=== PATIENT | male | born 1960 | race African-American/Black ===

== ENCOUNTER 2017-06-09 08:05 | Inpatient (IN) ==
[2017-06-09] MEDS ORDERED: fentaNYL 100 MCG/2 ML VIAL ONE (08:09)
[2017-06-09] MEDS ORDERED: MIDAZOLAM 2 MG/2 ML VIAL ONE (08:09)
[2017-06-09] MEDS ORDERED: BIVALIRUDIN 250 MG VIAL IV ONE (08:12)
[2017-06-09] MEDS ORDERED: LIDOCAINE 1% 20 ML VIAL ONE (08:46)
[2017-06-09] MEDS ORDERED: HEPARIN/NACL 0.9% 2 UNITS/ML 1,500 ML IV ONE (08:46)
[2017-06-09] MEDS ORDERED: TICAGRELOR 90 MG TABLET ONE (09:01)
[2017-06-09] MEDS ORDERED: ZALEPLON 5 MG CAPSULE PO PRN (09:03)
[2017-06-09] MEDS ORDERED: MORPHINE 2 MG/1 ML SYRINGE IV PRN (09:03)
[2017-06-09] MEDS ORDERED: ACETAMINOPHEN/CODEINE 300-30 MG TABLET PO PRN (09:03)
[2017-06-09] MEDS ORDERED: ACETAMINOPHEN 325 MG TABLET PO PRN (09:03)
[2017-06-09] MEDS ORDERED: ONDANSETRON 4 MG/2 ML VIAL IV PRN (09:03)
--- NOTE | 2017-06-09 09:07 | History and Physical Update ---
Sedation H&P Update - History and Physical H&P was reviewed, the patient examined and there: are no changes in the patients condition since last H&P was completed. - Dictation Physical: refer to H&P completed by admitting physician - Physical Exam Mental Status: alert and oriented Heart: regular rate and rhythm Lung: clear to auscultation Abdomen: within normal limits Vitals: within normal limits History and Physical Changes: This is a late entry. Patient underwent emergent consent in the [facility]. - Sedation Plan for Sedation: moderate Patient Consent: Procedure disscussed with patient and patinet has consented., Risks and benefits were discussed with patient,including infection,, bleeding, injury to surrounding structures, seizure, temporary nerve, Patient understands and accepts potential risks/benefits and agrees to, proceed. ASA Class: IV Airway Assessment: Class I: Soft palate, uvula, fauces, pillars visible
--- NOTE | 2017-06-09 09:11 | Cardiology History & Physical ---
Assessment and Plan (1) ST elevation myocardial infarction (STEMI) of anterior wall Status: Acute Current Visit: Yes (2) Drug use Status: Chronic Current Visit: Yes (3) Alcohol abuse Status: Chronic Current Visit: Yes History of Present Illness Chief complaint: Chest pain History of present illness: The patient was interviewed emergently in the [facility] while preparing for left heart catheterization. 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 Layton is a 57 year old male without a prior cardiac history, he denies any medical history, who presented with chest pain. He presented to [facility]. Early this morning the patient developed chest discomfort which she had a hard time characterizing. It was in extreme discomfort with some associated diaphoresis, shortness of breath. There were no clear triggers or alleviators. He had been given morphine and was not able to characterize his symptoms very well and was a poor historian. According to the hospital record his symptoms had began approximately 1 hour prior to arrival at the outside hospital. He denied any drug or contrast allergy, GI bleeding, or contraindication to dual antiplatelet therapy. He denied any recent illness. Home medications: None Family history: Negative for coronary artery disease Impression and plan: 1. Acute anterior ST elevation myocardial infarction- The patient is now status post emergent PCI to the proximal LAD with placement of synergy 3.5 x 12 mm drug-eluting stent postdilated to 3.75 mm. He also has residual severe diffuse multivessel disease. For now we are going to optimize his medical therapy and evaluate his compliance. He does have a history of ongoing drug use , daily alcohol use. We are going to treat him with beta-sotero therapy, high -dose statin therapy, and dual antiplatelet therapy. We will further risk stratify with echocardiogram and fasting lipid profile. 2. Polysubstance abuse-the merits of alcohol and drug cessation have been addressed. Allergies Allergy/AdvReac Type Severity Reaction Status Date / Time No Known Allergies Allergy Unverified 06/09/17 08:56 12 point system: reviewed and no additional remarkable complaints except as stated Medical,Surgical,& Family Hx - Family History Family History: noncontributory - Social History Smoking Status: Former smoker Frequency of Alcohol Use: Frequently Type of Drug Use: Unknown Functional capacity: independent ambulation Cardiology Physical Exam - Constitutional Vitals: Intake and Output 06/08/17 06/09/17 06/09/17 23:59 07:59 15:59 Other: Weight 63.503 kg Patient Weight 06/09/17 23:59 Weight 63.503 kg Exam: General appearance: normal weight, no acute distress - Head Head exam: Present: normal inspection, normocephalic, atraumatic. Absent: hematoma, laceration - Eye Eye exam: Present: EOMI. Absent: conjunctival injection, nystagmus, periorbital swelling, scleral icterus, laceration to eyelids Pupils: Present: PERRL. Absent: constricted, dilated, fixed, irregular, unequal - ENT ENT exam: Present: normal exam, normal external ear exam - Neck Neck exam: Present: normal inspection. Absent: lymphadenopathy, meningismus, tenderness, thyromegaly - Respiratory Respiratory exam: Present: clear to auscultation bilaterally. Absent: accessory muscle use, chest wall tenderness - Cardiovascular Cardiovascular exam: Present: regular rate and rhythm. Absent: carotid bruit, gallop, JVD, rubs - GI/Abdominal GI/Abdominal exam: Present: normal bowel sounds, soft. Absent: distended, firm , guarding, hernia, mass, tenderness, rebound. - Extremities Exam Extremities exam: Present: normal inspection, normal capillary refill. Absent: calf tenderness, edema - Back Exam Back exam: Present: normal inspection. Absent: muscle spasm, vertebral tenderness - Neurological Exam Neurological exam: Present: alert, oriented X3, grossly intact without resting or intention tremor - Psychiatric Psychiatric exam: Present: normal affect, normal mood - Skin Skin exam: Present: normal color, warm, dry, intact. Absent: cyanosis, diaphoretic, rash, urticaria Result/EKG - Labs Lab Results: I have reviewed the past 24 hour labs - EKG EKG results: interpreted by me, sinus rhythm (Anterior ST elevation)
[2017-06-09] MEDS ORDERED: SODIUM CHLORIDE 0.45% 1,000 ML IV SCH (09:30)
--- NOTE | 2017-06-09 09:33 | Cardiology Operative Report ---
Date of Procedure:: 06/09/17 Pre-op diagnosis: Acute anterior ST elevation [place] Post-op diagnosis: other (100% occluded LAD, moderate to severe multivessel disease.) Procedure: 1. Selective left and right coronary angiography. 2. Left heart catheterization with left ventriculogram. 3. Right iliac angiography to rule out vascular complications. 4. Percutaneous intervention of the proximal LAD with placement of synergy 3.5 x 12 mm drug-eluting stent postdilated to 3.75 mm. 5. Application of mynx hemostasis device to the right femoral arteriotomy site. Impression: 1. Multivessel coronary artery disease. A. Proximal LAD with 100% stenosis. The midportion has diffuse 50% stenosis. B. Proximal intermediate ramus with 80% stenosis. C. Circumflex with 50-60% stenosis. D. Mid right coronary artery with 40-50% stenosis. 2. [Right] dominant coronary arteries. 3. Ejection fraction 50 %. 4. [Angiographically normal] right iliac artery [without] evidence of vascular complications. 5. Successful PCI of the proximal left anterior descending coronary artery as described above. Plan: 1. DAPT > 12 months. 2. [Risk factor modification]. Equipment: [Diagnostic 6 [place] JR4, pigtail catheters] Guiding 6 [place] EBU 3.5 catheter, [300 cm Practice Management e-Tools wire], apex over the wire 2 x 12 mm balloon, synergy 3.5 x 12 mm drug-eluting stent, Quantum [place] 3.75 x 8 mm non-compliant balloon Mynx Hemodynamics: Aortic pressure 121/90 mmHg, left ventricular pressure 153/11 mmHg, LVEDP 11 mmHg Sedation: Versed 1 mg, fentanyl 25 mcg Procedure: After informed consent was obtained the patient was prepped and draped in sterile fashion. The [right] groin was infiltrated with 1% lidocaine and the [ right] femoral artery was accessed via modified Seldinger technique using a micropuncture needle and a 6 [place] femoral arterial sheath was placed. All catheter exchanges were performed over a guidewire under fluoroscopic guidance. Diagnostic 6 [place] JR4 catheter was advanced to the right coronary artery and multiple cineangiograms were performed in varying degrees of obliquity and angulation. A guiding 6 [place] EBU 3.5 catheter was then advanced to the left main coronary artery, and multiple scintigrams were performed in varying degrees of obliquity angulation. Percutaneous intevention of the LAD was then performed as described below. Right iliac angiography was performed to rule out vascular complications. Thereafter a pigtail catheter was advanced into the left ventricle where hemodynamics were obtained followed by left ventriculogram. A mynx hemostasis device was unsuccessfully applied to the right femoral arteriotomy site. Findings: 1. The left main artery [is angiographically normal]. 2. The left anterior descending artery is 100% occluded in the proximal segment. After he was revascularized, the midportion was observed to have 50% diffuse stenosis. 3. There [is] an intermediate ramus branch that is moderate caliber with 80% stenosis in the proximal segment. 4. The circumflex artery is a nondominant vessel. There is diffuse disease with serial areas of 60% and 50% stenosis in the mid segments. 5. The right coronary artery is a dominant vessel. It is diffusely mildly ectatic with mild to moderate atheromatous disease, and 40-50% stenosis in the mid segment. 6. Ejection fraction is 50 % with apical akinesis. 7. [No significant] mitral regurgitation. 8. [No significant] aortic stenosis. 9. The right iliac artery [is angiographically normal] without evidence of vascular complications. PCI: The patient was anticoagulated with [Angiomax] and Integrilin. After appropriate anticoagulation was confirmed with an ACT measurement, a guiding 6 [place] EBU 3.5 catheter was advanced to the [left main] artery. A [Prowater 300 cm] wire was used to traverse the [left anterior descending] artery. A apex over the wire 2 x 12 mm balloon was advanced to the site of stenosis and angioplasty was performed at nominal ginger. Thereafter, a synergy 3.5 x 12 mm drug-eluting stent was advanced to the site of angioplasty, and successfully deployed at nominal ginger. Afterwards, a non-compliant Quantum [place] 3.75 x 8 mm balloon was advanced into the stented segment and post-dilation was performed at nominal pressure. Satisfactory angiographic result was obtained with appropriate step-up proximally and distally, and no evidence of residual vascular complications. Preoperatively there was 100% stenosis with LESA 0 flow , postoperatively there is 0% residual stenosis with LESA-3 flow. Contrast use: Visipaque 203 cc Fluoro time: 9.7 minutes Complications: [none] Specimens removed: [none] Devices implanted: [stent and [id number] as described above] Anesthesia: moderate conscious sedation Surgeon / Physician: Alisson Garcia Correction Worker: none (Shayne Michael) Estimated blood loss: minimal Specimens: none sent Condition: stable Disposition: ICU/CCU
[2017-06-09 09:53] LABS: Basophils % 0.6 % (0.0-0.8); Eosinophils % 0.3 % (0.00-10.9); Hematocrit 35.8 VOL% (42.0-52.0); Hemoglobin 11.8 GM/DL (14.0-18.0); Immature Granulocytes % 0.3 %; Immature Granulocytes Absolute 0.01 #; Lymphocytes # 0.8 10*3/uL (1.4-4.0); Mean Corpuscular Hemoglobin 30 PG (27-34); Mean Corpuscular Volume 92.3 FL (87-102); Mean Platelet Volume 9.2 FL (9.6-12.0); Monocytes # 0.2 10*3/uL (0.11-0.8); Monocytes % 7.1 % (1.7-12.7); Neutrophils # 2.3 10*3/uL (1.4-7.4); Neutrophils % 67.7 % (38.7-73.9); Platelet Count 175 T/CUMM (130-400); Red Blood Count 3.88 MC/CUMM (3.8-5.5); Red Cell Distribution Width 13.5 % (9.3-17.3); White Blood Count 3.4 T/CUMM (4-12)
[2017-06-09 10:25] LABS: Calcium 7.9 MG/DL (8.5-10.1); Osmolality,Calculated 275.5 MOS/KG (273-304); Potassium 3.6 MMOL/L (3.5-5.1)
[2017-06-09 10:43] LABS: CKMB % 8.1 %
--- NOTE | 2017-06-09 10:48 | EKG Report ---
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
[2017-06-09] MEDS: NITROGLYCERIN SL 0.4 MG TABLET SL PRN ×4 (13:53→20:53)
[2017-06-09 14:04] LABS: Barbiturates Screen,Urine Negative (Negative); Benzodiazepines Screen,Urine Positive (Negative); Cannabinoid Screen,Urine Negative (Negative); Opiate Screen,Urine Positive (Negative); Phencyclidine Screen,Urine Negative (Negative)
[2017-06-09] MEDS ORDERED: METOPROLOL TARTRATE 5 MG/5 ML VIAL IV ONE (16:00)
[2017-06-09 18:29] LABS: CKMB % 9.1 %
[2017-06-09 18:38] LABS: Troponin I Only > 200.000 NG/ML (0.00-0.045)
[2017-06-09] MEDS: TICAGRELOR 90 MG TABLET PO SCH (20:47)
[2017-06-09] MEDS: ATORVASTATIN 40 MG TABLET PO SCH (20:47)
[2017-06-09] MEDS: CARVEDILOL 6.25 MG TABLET PO SCH (20:47)
[2017-06-10 01:48] LABS: Basophils % 0.3 % (0.0-0.8); Hematocrit 38.2 VOL% (42.0-52.0); Hemoglobin 13.2 GM/DL (14.0-18.0); Immature Granulocytes % 0.3 %; Immature Granulocytes Absolute 0.02 #; Lymphocytes # 1.1 10*3/uL (1.4-4.0); Mean Corpuscular HGB Conc 34.6 GM/DL (32-36); Mean Corpuscular Hemoglobin 30 PG (27-34); Mean Corpuscular Volume 87.8 FL (87-102); Monocytes # 0.8 10*3/uL (0.11-0.8); Monocytes % 10.1 % (1.7-12.7); Neutrophils # 5.7 10*3/uL (1.4-7.4); Neutrophils % 75.3 % (38.7-73.9); Platelet Count 181 T/CUMM (130-400); Red Blood Count 4.35 MC/CUMM (3.8-5.5); Red Cell Distribution Width 13.1 % (9.3-17.3); White Blood Count 7.6 T/CUMM (4-12)
[2017-06-10 02:44] LABS: Calcium 8.4 MG/DL (8.5-10.1); Osmolality,Calculated 264.5 MOS/KG (273-304); Risk Ratio 4.1; VLDL CHOLESTEROL 40.2 MG/DL
[2017-06-10 02:48] LABS: CKMB % 7.2 %; Troponin I Only 89.9 NG/ML (0.00-0.045)
[2017-06-10 03:03] LABS: Alanine Aminotransferase 78 U/L (16-61); Albumin 3.4 G/DL (3.4-5.0); Alkaline Phosphatase 93 U/L (45-117); Aspartate Amino Transferase 552 U/L (0-37); Bilirubin,Direct < 0.100 MG/DL (0.0-0.20); Bilirubin,Indirect 0.6 MG/DL (0.0-1.0); Total Protein 7.3 G/DL (6.4-8.3)
[2017-06-10] MEDS: ENOXAPARIN 40 MG/0.4 ML SYRINGE SUBCUT SCH (06:07)
--- NOTE | 2017-06-10 08:46 | EKG Report ---
Please refer to the EKG image. Final interpretation is pending.
--- NOTE | 2017-06-10 08:49 | ECHO Report ---
Shayne Layton Exam Date: 06/09/2017 11:51 Referring Physician: Technologist: Kalpana Guerrero RDCS Age: 57 Ht (in): 65 Wt (lb): 140 Gender: M Exam Location: [facility] Echo Indications: Chest pain, unspecified, Acute anterior STEMI, Polysubstance abuse, Shortness of breath, s/p CATH with stent BP: 148 / 101 HR: 81 Rhythm: Sinus Technical Quality: Poor IMPRESSIONS Mildly reduced LV systolic function with regional wall motion as described below, ejection fraction estimated at 40%. Grade 1/4 diastolic dysfunction. Mild tricuspid regurgitation. MEASUREMENTS (Male / Female) Normal Values 2D ECHO LV Diastolic Diameter PLAX 4.2 cm 4.2 - 5.9 / 3.9 - 5.3 cm LV Systolic Diameter PLAX 2.5 cm LV Fractional Shortening PLAX 39.4 % IVS Diastolic Thickness 1.1 cm 0.6 - 1.0 / 0.6 - 0.9 cm LVPW Diastolic Thickness 1.1 cm 0.6 - 1.0 / 0.6 - 0.9 cm RV Internal Dim ED PLAX 2.8 cm Aortic Root Diameter 3.0 cm LA Systolic Diameter LX 2.6 cm 3.0 - 4.0 / 2.7 - 3.8 cm DOPPLER TR Peak Velocity 319.0 cm/s TR Peak Gradient 40.7 mmHg FINDINGS Left Ventricle Normal left ventricular cavity size. Mild left ventricular hypertrophy. Left ventricular ejection fraction is estimated at 40-45 %. The anterior septum and apex appear akinetic. The anterior wall is not well seen on this study. There is diastolic dysfunction consistent with impaired relaxation. Right Ventricle The right ventricle is normal in size and function. Right Atrium The right atrium is normal in size. Left Atrium The left atrium is normal in size. Mitral Valve Morphologically normal mitral valve without significant stenosis or prolapse. There is no mitral regurgitation. Aortic Valve Morphologically normal aortic valve without significant sclerosis or stenosis. There is no aortic regurgitation. Tricuspid Valve Morphologically normal tricuspid valve. Mild tricuspid valve regurgitation. Tricuspid regurgitation velocities suggest a PAP of 51 mmHg. Pulmonic Valve Morphologically normal pulmonic valve without significant stenosis. There is no pulmonic regurgitation. Pericardium Normal pericardium without effusion. Aorta Normal ascending aorta dimension. Alisson Garcia MD (Electronically Signed) Final Date: 10 June 2017 08:47
[2017-06-10] MEDS: PANTOPRAZOLE 40 MG TABLET PO SCH (09:54)
[2017-06-10] MEDS: ASPIRIN EC 81 MG TABLET PO SCH (09:54)
[2017-06-10] MEDS: CARVEDILOL 6.25 MG TABLET PO SCH ×2 (09:54→21:06)
[2017-06-10] MEDS: LISINOPRIL 5 MG TABLET PO SCH (09:54)
[2017-06-10] MEDS: TICAGRELOR 90 MG TABLET PO SCH ×2 (09:54→21:06)
[2017-06-10] MEDS: ISOSORBIDE MONONITRATE 30 MG TABLET PO SCH (09:54)
--- NOTE | 2017-06-10 15:05 | Cardiology Progress Note ---
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 Layton is a 57 year old male without a prior cardiac history, he denies any medical history, who was admitted to the hospital from [facility] with acute anterior ST elevation myocardial infarction. He underwent emergent PCI to the proximal LAD with synergy 3.5 x 12 mm drug-eluting stent postdilated to 3.75 mm. He also has at least moderate disease throughout the remainder of his vessels, and severe intermedius ramus disease. He has a history of polysubstance abuse and was cocaine positive upon admission. June 10, 2017: He did well overnight he denies any chest pain. He has had some nonsustained ventricular tachycardia. He denies any shortness of breath or complaints from his cath site. Impression and plan: 1. Acute anterior ST elevation myocardial infarction- The patient is now status post emergent PCI to the proximal LAD with placement of synergy 3.5 x 12 mm drug-eluting stent postdilated to 3.75 mm. He also has residual severe diffuse multivessel disease. For now we are going to optimize his medical therapy and evaluate his compliance. He does have a history of ongoing drug use , daily alcohol use. We are going to treat him with beta-sotero therapy, high -dose statin therapy, and dual antiplatelet therapy. I prefer not to have him on a beta-sotero because of his ongoing cocaine use. However, he has had some nonsustained ventricular tachycardia so we will treat him with Coreg. 2. Polysubstance abuse-the merits of alcohol and drug cessation have been addressed. I reiterated the paramount importance of cocaine cessation today and its direct relationship with his coronary artery disease and the myocardial infarction he has sustained. Exam (Progress Note) - Constitutional Vitals: Period Temp Pulse Resp BP Sys/Lau Pulse Ox Last 24 Hr 95.8 F-98.2 F 81-102 8-22 119-171/77-108 94-99 Exam: General appearance: normal weight, no acute distress - Head Head exam: Present: normal inspection, normocephalic, atraumatic. Absent: hematoma, laceration - Eye Eye exam: Present: EOMI. Absent: conjunctival injection, nystagmus, periorbital swelling, scleral icterus, laceration to eyelids Pupils: Present: PERRL. Absent: constricted, dilated, fixed, irregular, unequal - ENT ENT exam: Present: normal exam, normal external ear exam - Neck Neck exam: Present: normal inspection. Absent: lymphadenopathy, meningismus, tenderness, thyromegaly - Respiratory Respiratory exam: Present: clear to auscultation bilaterally. Absent: accessory muscle use, chest wall tenderness - Cardiovascular Cardiovascular exam: Present: regular rate and rhythm. Absent: carotid bruit, gallop, JVD, rubs - GI/Abdominal GI/Abdominal exam: Present: normal bowel sounds, soft. Absent: distended, firm , guarding, hernia, mass, tenderness, rebound. - Extremities Exam Extremities exam: Present: normal inspection, normal capillary refill. Absent: calf tenderness, edema - Back Exam Back exam: Present: normal inspection. Absent: muscle spasm, vertebral tenderness - Neurological Exam Neurological exam: Present: alert, oriented X3, grossly intact without resting or intention tremor - Psychiatric Psychiatric exam: Present: normal affect, normal mood - Skin Skin exam: Present: normal color, warm, dry, intact. Absent: cyanosis, diaphoretic, rash, urticaria Right groin is without hematoma or bruit, right femoral pulses 3+, right posterior tibialis pulses 2+. Result/EKG - Labs CBC & BMP: 06/10/17 01:12 06/10/17 01:12 Lab Results: I have reviewed the past 24 hour labs Labs: Laboratory Results - last 24 hr 06/09/17 06/09/17 06/10/17 17:48 17:48 01:12 WBC RBC Hgb Hct MCV MCH MCHC RDW Plt Count MPV Neut % (Auto) Lymph % (Auto) Ritchie % (Auto) Eos % (Auto) Baso % (Auto) Neut # (Auto) Lymph # (Auto) Ritchie # (Auto) Eos # (Auto) Baso # (Auto) Immature Gran % Nucleated RBC % Immature Gran # Nucleated RBCs # Sodium Potassium Chloride Carbon Dioxide Anion Gap BUN Creatinine GFR Calculation BUN/Creatinine Ratio Glucose Calculated Osmolality Calcium Magnesium 1.8 Total Bilirubin Direct Bilirubin Indirect Bilirubin AST ALT Alkaline Phosphatase Total Creatine Kinase 4078 H 2676 H D CK-MB (CK-2) 371.4 H D 192.2 H D CK and CKMB Interp 9.1 7.2 Troponin I > 200.000 H D 89.900 H D Total Protein Albumin Triglycerides Cholesterol LDL Cholesterol VLDL Cholesterol HDL Cholesterol Heart Disease Risk Ratio 06/10/17 06/10/17 06/10/17 01:12 01:12 01:12 WBC 7.6 D RBC 4.35 Hgb 13.2 L Hct 38.2 L MCV 87.8 MCH 30 MCHC 34.6 RDW 13.1 Plt Count 181 MPV 10.0 Neut % (Auto) 75.3 H Lymph % (Auto) 14.0 L Ritchie % (Auto) 10.1 Eos % (Auto) 0.0 Baso % (Auto) 0.3 Neut # (Auto) 5.7 Lymph # (Auto) 1.1 L Ritchie # (Auto) 0.8 Eos # (Auto) 0.0 Baso # (Auto) 0.0 Immature Gran % 0.3 Nucleated RBC % 0.0 Immature Gran # 0.02 Nucleated RBCs # 0.00 Sodium 132 L Potassium 4.0 Chloride 98 Carbon Dioxide 22 Anion Gap 16.0 H BUN 7 Creatinine 0.90 GFR Calculation 112 BUN/Creatinine Ratio 7.00 Glucose 149 H Calculated Osmolality 264.5 L Calcium 8.4 L Magnesium Total Bilirubin 0.70 Direct Bilirubin < 0.100 Indirect Bilirubin 0.6 AST 552 H ALT 78 H Alkaline Phosphatase 93 Total Creatine Kinase CK-MB (CK-2) CK and CKMB Interp Troponin I Total Protein 7.3 Albumin 3.4 Triglycerides 201 H Cholesterol 287 H LDL Cholesterol 178.0 VLDL Cholesterol 40.2 HDL Cholesterol 70 H Heart Disease Risk Ratio 4.10
[2017-06-10] MEDS: ATORVASTATIN 40 MG TABLET PO SCH (21:06)
[2017-06-11] MEDS: ENOXAPARIN 40 MG/0.4 ML SYRINGE SUBCUT SCH (05:55)
[2017-06-11] MEDS: CARVEDILOL 6.25 MG TABLET PO SCH ×2 (09:31→21:31)
[2017-06-11] MEDS: ASPIRIN EC 81 MG TABLET PO SCH (09:31)
[2017-06-11] MEDS: ISOSORBIDE MONONITRATE 30 MG TABLET PO SCH (09:31)
[2017-06-11] MEDS: LISINOPRIL 5 MG TABLET PO SCH (09:31)
[2017-06-11] MEDS: TICAGRELOR 90 MG TABLET PO SCH ×2 (09:31→21:31)
[2017-06-11] MEDS: PANTOPRAZOLE 40 MG TABLET PO SCH (09:31)
--- NOTE | 2017-06-11 11:20 | Cardiology Progress Note ---
Assessment and Plan - Time spent with patient Time spent with patient: Greater than 30 minutes Time spent discussing smoking cessation with patient: 3 to 10 minutes (1) Hypertension Status: Chronic Assessment and plan: SEE PLAN OF CARE LISTED BELOW Current Visit: Yes (2) Dyslipidemia Status: Chronic Assessment and plan: SEE PLAN OF CARE LISTED BELOW Current Visit: Yes (3) Cocaine abuse Status: Chronic Assessment and plan: SEE PLAN OF CARE LISTED BELOW Current Visit: Yes (4) Marijuana abuse Status: Chronic Assessment and plan: SEE PLAN OF CARE LISTED BELOW Current Visit: Yes (5) Tobacco abuse Status: Chronic Assessment and plan: SEE PLAN OF CARE LISTED BELOW Current Visit: Yes (6) ST elevation myocardial infarction (STEMI) of anterior wall Status: Acute Assessment and plan: SEE PLAN OF CARE LISTED BELOW Current Visit: Yes (7) Alcohol abuse Status: Chronic Assessment and plan: SEE PLAN OF CARE LISTED BELOW Current Visit: Yes Cardiology - PN: Subj Interval history: PROGRAM OFFICER: DR. GARCIA SUMMARY: Mr. Layton, 57BM, admitted June 09, 2017 with anterior STEMI. He was taken emergently to the cardiac catheterization lab where Dr. Alisson Garcia performed heart catheterization with the following noted: Findings: 1. The left main artery [is angiographically normal]. 2. The left anterior descending artery is 100% occluded in the proximal segment. After he was revascularized, the midportion was observed to have 50% diffuse stenosis. 3. There [is] an intermediate ramus branch that is moderate caliber with 80% stenosis in the proximal segment. 4. The circumflex artery is a nondominant vessel. There is diffuse disease with serial areas of 60% and 50% stenosis in the mid segments. 5. The right coronary artery is a dominant vessel. It is diffusely mildly ectatic with mild to moderate atheromatous disease, and 40-50% stenosis in the mid segment. 6. Ejection fraction is 50 % with apical akinesis. 7. [No significant] mitral regurgitation. 8. [No significant] aortic stenosis. 9. The right iliac artery [is angiographically normal] without evidence of vascular complications. PCI: The patient was anticoagulated with [Angiomax] and Integrilin. After appropriate anticoagulation was confirmed with an ACT measurement, a guiding 6 [place] EBU 3.5 catheter was advanced to the [left main] artery. A [BTI Systemswater 300 cm] wire was used to traverse the [left anterior descending] artery. A apex over the wire 2 x 12 mm balloon was advanced to the site of stenosis and angioplasty was performed at nominal ginger. Thereafter, a synergy 3.5 x 12 mm drug-eluting stent was advanced to the site of angioplasty, and successfully deployed at nominal ginger. Afterwards, a non-compliant Quantum Waldo 3.75 x 8 mm balloon was advanced into the stented segment and post-dilation was performed at nominal pressure. Satisfactory angiographic result was obtained with appropriate step-up proximally and distally, and no evidence of residual vascular complications. Preoperatively there was 100% stenosis with LESA 0 flow , postoperatively there is 0% residual stenosis with LESA-3 flow. Tolerated the procedure well without complication and has been housed in our CCU. JUNE 11, 2017: This morning, patient is doing well. Denies chest pain, heaviness, tightness. He has only minimally ambulated to the bedside commode and back. Troponins are trending down. We will transition to telemetry overnight with possible discharge tomorrow. Medical management will ensue for the other areas mentioned above. He has been placed on isosorbide mononitrate. He is taking appropriate medications including: Aspirin, Brilinta, beta- sotero, HOLGER inhibitor, lipid-lowering agent. Cardiac rehab has seen patient and counseled. Right groin is soft, free of hematoma or bruit. I will further discuss with Dr. Augustin and await additional recommendations. ASSESSMENT/PLAN: 1. STEMI -anterior. On appropriate medicines. At this time, troponin is trending down and suspect he may be eligible for discharge tomorrow. 2. HYPERTENSION - adequately controlled. 3. DYSLIPIDEMIA - LDL 178. Continue lipid-lowering agent 4. TOBACCO USE - greater than 5 minutes was spent today discussing the merits of tobacco cessation 5. COCAINE USE - greater than 5 minutes was spent today discussing the merits of cocaine cessation 6. MARIJUANA USE - greater than 5 minutes was spent today discussing the merits of marijuana cessation 7. ALCOHOL USE - greater than 5 minutes was spent today discussing the merits of excessive alcohol cessation Exam (Progress Note) - Constitutional Vitals: Period Temp Pulse Resp BP Sys/Lau Pulse Ox Last 24 Hr 97.4 F-98.9 F 84-103 16-24 67-128/43-83 95-99 Exam: General: [Appears well with no apparent distress.] [Pleasant and cooperative. ] [Appears comfortable.] HEENT: [PERRL, normocephalic, atraumatic. Mucous membranes moist. No jaundice noted. Conjunctiva moist and clear, sclerae anicteric] Neck: No JVD/HJR, no thyromegaly or lymphadenopathy noted. No carotid bruit appreciated Cardiac: [Regular rate and rhythm.] [No murmur rub or gallop.] Lungs: [Clear to auscultation without accessory muscle use to assist the respiratory pattern.] Oxygen in use via nasal cannula Abdomen: Soft, bowel sounds normoactive. Nontender and nondistended. No abdominal bruit or thrill noted. No masses noted. Musculoskeletal: No fluid collection. Decreased range of motion is noted. Extremities: Right groin soft, free of hematoma or bruit. No clubbing, cyanosis noted. [ No edema noted.] Upper extremity pulses 2+. Lower extremity pulses 2+. Capillary refill less than 3 seconds. Skin: No unusual lesions or rashes. No skin breakdown appreciated. Neuro: Awake, alert and oriented 3. Moves all extremities well without hemiparesis or paralysis. No essential tremor is appreciated. Result/EKG - Labs CBC & BMP: 06/10/17 01:12 06/10/17 01:12 Lab Results: I have reviewed the past 24 hour labs - Diagnostic Findings Procedure: Chest x-ray: report reviewed by me - EKG EKG results: interpreted by me EKG shows: sinus rhythm Specialty Discharge - Follow Up or Referrals
[2017-06-11] MEDS: ATORVASTATIN 40 MG TABLET PO SCH (21:31)
[2017-06-12] MEDS: ENOXAPARIN 40 MG/0.4 ML SYRINGE SUBCUT SCH (03:52)
[2017-06-12 05:33] LABS: Basophils % 0.4 % (0.0-0.8); Eosinophils # 0.1 10*3/uL (0.0-0.87); Hematocrit 34.8 VOL% (42.0-52.0); Hemoglobin 11.6 GM/DL (14.0-18.0); Immature Granulocytes % 0.6 %; Immature Granulocytes Absolute 0.04 #; Lymphocytes # 2.2 10*3/uL (1.4-4.0); Lymphocytes % 32.9 % (21.2-54.2); Mean Corpuscular HGB Conc 33.3 GM/DL (32-36); Mean Corpuscular Hemoglobin 30 PG (27-34); Mean Corpuscular Volume 90.2 FL (87-102); Mean Platelet Volume 10.1 FL (9.6-12.0); Monocytes # 1.2 10*3/uL (0.11-0.8); Monocytes % 17.4 % (1.7-12.7); Neutrophils # 3.2 10*3/uL (1.4-7.4); Neutrophils % 47.7 % (38.7-73.9); Platelet Count 181 T/CUMM (130-400); Red Blood Count 3.86 MC/CUMM (3.8-5.5); Red Cell Distribution Width 12.5 % (9.3-17.3); White Blood Count 6.7 T/CUMM (4-12)
[2017-06-12 05:53] LABS: Band Neutrophils 1 % (0-10); Eosinophils 1 % (0-10); Giant Platelets Few; Hypochromasia 1+; Lymphocytes 45 % (20-55); Platelet Estimate Normal; Segmented Neutrophils 47 % (50-85); Total Cells Counted 100
[2017-06-12 06:09] LABS: Calcium 8.8 MG/DL (8.5-10.1); Osmolality,Calculated 277.5 MOS/KG (273-304); Potassium 4.2 MMOL/L (3.5-5.1)
[2017-06-12 08:05] VITALS: BP 118/68
[2017-06-12] MEDS: CARVEDILOL 6.25 MG TABLET PO SCH (09:43)
[2017-06-12] MEDS: PANTOPRAZOLE 40 MG TABLET PO SCH (09:43)
[2017-06-12] MEDS: TICAGRELOR 90 MG TABLET PO SCH (09:43)
[2017-06-12] MEDS: LISINOPRIL 5 MG TABLET PO SCH (09:43)
[2017-06-12] MEDS: ASPIRIN EC 81 MG TABLET PO SCH (09:43)
[2017-06-12] MEDS: ISOSORBIDE MONONITRATE 30 MG TABLET PO SCH (09:43)
--- NOTE | 2017-06-12 09:45 | Discharge Summary ---
Hospital Course - Hospital Course Hospital Course: CATTYMAN: DR. GARCIA SUMMARY: Mr. Layton, 57BM, admitted June 09, 2017 with anterior STEMI. He was taken emergently to the cardiac catheterization lab where Dr. Alisson Garcia performed heart catheterization with the following noted: Findings: 1. The left main artery [is angiographically normal]. 2. The left anterior descending artery is 100% occluded in the proximal segment. After he was revascularized, the midportion was observed to have 50% diffuse stenosis. 3. There [is] an intermediate ramus branch that is moderate caliber with 80% stenosis in the proximal segment. 4. The circumflex artery is a nondominant vessel. There is diffuse disease with serial areas of 60% and 50% stenosis in the mid segments. 5. The right coronary artery is a dominant vessel. It is diffusely mildly ectatic with mild to moderate atheromatous disease, and 40-50% stenosis in the mid segment. 6. Ejection fraction is 50 % with apical akinesis. 7. [No significant] mitral regurgitation. 8. [No significant] aortic stenosis. 9. The right iliac artery [is angiographically normal] without evidence of vascular complications. PCI: The patient was anticoagulated with [Angiomax] and Integrilin. After appropriate anticoagulation was confirmed with an ACT measurement, a guiding 6 [place] EBU 3.5 catheter was advanced to the [left main] artery. A [Prowater 300 cm] wire was used to traverse the [left anterior descending] artery. A apex over the wire 2 x 12 mm balloon was advanced to the site of stenosis and angioplasty was performed at nominal ginger. Thereafter, a synergy 3.5 x 12 mm drug-eluting stent was advanced to the site of angioplasty, and successfully deployed at nominal ginger. Afterwards, a non-compliant Quantum [place]alou 3.75 x 8 mm balloon was advanced into the stented segment and post-dilation was performed at nominal pressure. Satisfactory angiographic result was obtained with appropriate step-up proximally and distally, and no evidence of residual vascular complications. Preoperatively there was 100% stenosis with LESA 0 flow , postoperatively there is 0% residual stenosis with LESA-3 flow. Tolerated the procedure well without complication and has been housed in our CCU. JUNE 11, 2017: This morning, patient is doing well. Denies chest pain, heaviness, tightness. He has only minimally ambulated to the bedside commode and back. Troponins are trending down. We will transition to telemetry overnight with possible discharge tomorrow. Medical management will ensue for the other areas mentioned above. He has been placed on isosorbide mononitrate. He is taking appropriate medications including: Aspirin, Brilinta, beta- sotero, HOLGER inhibitor, lipid-lowering agent. Cardiac rehab has seen patient and counseled. Right groin is soft, free of hematoma or bruit. I will further discuss with Dr. Augustin and await additional recommendations. JUNE 12, 2017: Patient was transitioned to telemetry overnight. He has been ambulating in the hallways without complaints of chest pain, heaviness or tightness. Denies shortness of breath. He is anxious for release home. Long discussion ensued today regarding the need for abstaining from illicit drugs, alcohol and tobacco. He verbalizes understanding. His right groin is soft, free of hematoma or bruit. Labs are stable. I have instructed him regarding the importance of continued follow-up in taking of his medications as directed without fail for 1 year. He verbalizes understanding of this information. Having felt is met maximal medical therapy, patient is being discharged home in stable condition. He will be given a 1-2 week follow-up with Dr. Alisson Garcia. At that visit the following will be obtained, BMP, magnesium, CBC and EKG. Discharge medications include the following: Aspirin 81 mg orally daily Brilinta 90 mg orally twice daily without fail Coreg 6.25 mg orally twice daily Lisinopril 5 mill grams orally daily Atorvastatin 80 mg orally each evening Isosorbide mononitrate 30 mg orally daily Nitroglycerin 0.4 mg sublingual as needed for chest - Time spent with patient Time with patient DS: Greater than 30 minutes Time spent discussing smoking cessation with patient: 3 to 10 minutes Diagnosis - Discharge Diagnosis (1) Hypertension Status: Chronic (2) Dyslipidemia Status: Chronic (3) Cocaine abuse Status: Chronic (4) Marijuana abuse Status: Chronic (5) Tobacco abuse Status: Chronic (6) ST elevation myocardial infarction (STEMI) of anterior wall Status: Acute (7) Alcohol abuse Status: Chronic Specialty Discharge - Follow Up or Referrals Follow up with: Alisson Garcia MD [Physician] - (1-2 weeks. BMP, magnesium, CBC and EKG) Discharge Plan - Discharge Data Disposition: Disch To Home/Self Care Condition at Discharge: Stable Discharge Diet: heart healthy Activity: other (Post cath expectations) Hygiene: other (Post cath expectations) Weight Bearing at Discharge: other (Post cath expectations) Driving: other (Post cath expectations) Contact your physician if you experience:: fever over 101, Difficulty voiding, Redness or swelling, Nausea/Vomiting, Shortness of breath, Bleeding, pain uncontrolled by pain medications - Discharge Medications New Aspirin EC Tab 81 mg PO DAILY #30 tablet Atorvastatin [Lipitor] 80 mg PO BEDTIME #30 tablet Isosorbide Mononitrate [Imdur] 30 mg PO DAILY #30 tablet Lisinopril [Prinivil] 5 mg PO DAILY #30 tablet Nitroglycerin Sl Tab [Nitrostat] 0.4 mg SL Q5M PRN #1 bottle PRN Reason: Chest Pain Ticagrelor [Brilinta] 90 mg PO BID #60 tablet Carvedilol [Coreg] 6.25 mg PO BID #60 tablet - Follow Up or Referral - Forms/Instructions Instructions: Myocardial Infarction (GEN), Left Heart Catheterization (DC), Heart Healthy Diet (GEN), Cigarette Smoking and Your Health (GEN), Coronary Intravascular Stent Placement, Hob Machine Operator (GEN) Exam - Constitutional Vitals: Period Temp Pulse Resp BP Sys/Lau Pulse Ox Last 24 Hr 97.3 F-98.9 F 83-95 17-20 90-118/50-68 96-99 Exam: General: [Appears well with no apparent distress.] [Pleasant and cooperative. ] [Appears comfortable.] HEENT: [PERRL, normocephalic, atraumatic. Mucous membranes moist. No jaundice noted. Conjunctiva moist and clear, sclerae anicteric] Neck: No JVD/HJR, no thyromegaly or lymphadenopathy noted. No carotid bruit appreciated Cardiac: [Regular rate and rhythm.] [No murmur rub or gallop.] Lungs: [Clear to auscultation without accessory muscle use to assist the respiratory pattern.] Oxygen in use via nasal cannula Abdomen: Soft, bowel sounds normoactive. Nontender and nondistended. No abdominal bruit or thrill noted. No masses noted. Musculoskeletal: No fluid collection. Decreased range of motion is noted. Extremities: Right groin soft, free of hematoma or bruit. No clubbing, cyanosis noted. [ No edema noted.] Upper extremity pulses 2+. Lower extremity pulses 2+. Capillary refill less than 3 seconds. Skin: No unusual lesions or rashes. No skin breakdown appreciated. Neuro: Awake, alert and oriented 3. Moves all extremities well without hemiparesis or paralysis. No essential tremor is appreciated. Discharge Results Labs on day of discharge: Labs from last 24 hours 06/12/17 06/12/17 05:14 05:14 WBC 6.7 RBC 3.86 Hgb 11.6 L Hct 34.8 L MCV 90.2 MCH 30 MCHC 33.3 RDW 12.5 Plt Count 181 MPV 10.1 Neut % (Auto) 47.7 Lymph % (Auto) 32.9 [place] % (Auto) 17.4 H Eos % (Auto) 1.0 Baso % (Auto) 0.4 Neut # (Auto) 3.2 Lymph # (Auto) 2.2 [place] # (Auto) 1.2 H Eos # (Auto) 0.1 Baso # (Auto) 0.0 Total Counted 100 Immature Gran % 0.6 Nucleated RBC % 0.0 Immature Gran # 0.04 Segmented Neutrophils 47 L Band Neutrophils 1 Lymphocytes 45 Monocytes 6 Eosinophils 1 Nucleated RBCs # 0.00 Platelet Estimate Normal Giant Platelets Few Immature Plt Fraction 0.0 Hypochromasia 1+ Sodium 139 Potassium 4.2 Chloride 103 Carbon Dioxide 31 Anion Gap 9.2 BUN 14 Creatinine 1.10 GFR Calculation 88 BUN/Creatinine Ratio 12.00 Glucose 102 Calculated Osmolality 277.5 Calcium 8.8 Magnesium 2.0 - Imaging and Cardiology Cardiology Procedure: report reviewed by sc Procedure: Chest x-ray: report reviewed by sc DS: Provider Date of admission: 06/09/17 09:03 Primary care physician: . No PCP Attending physician on admission: Alisson Garcia, Consults: 06/09/17 09:04 Consult to Cardiac Rehabilitation [CONS] Routine Reason for Cardiac Rehabilitation: Risk Factor Modification Other Consult Comment: Evaluate and recommend Discharging clinician: Lynn Paredes NP Expected date of discharge: 06/12/17
== END 2017-06-12 11:16 | disposition home or self-care (01) | DRG 247 ==
LOC: N.CL 08:05 → N.CC 09:03 → N.TELES 06-11 11:39
PROVIDERS: ADMIT Internal Medicine Cardiovascular Disease; ATTEND Internal Medicine Cardiovascular Disease
PROC: CLCCHCL (ICD-10-PCS; 2017-06-09 08:15)

== ENCOUNTER 2017-08-16 04:54 | Inpatient (IN) ==
[2017-08-16] MEDS ORDERED: PHENYLEPHRINE DRIP 40 MG/250 ML PREMIX IV ONE (05:01)
[2017-08-16] MEDS ORDERED: SODIUM CHLORIDE 0.9% 500 ML IV STA (05:06)
[2017-08-16 05:21] LABS: Basophils % 0.5 % (0.0-0.8); Hematocrit 44.9 VOL% (42.0-52.0); Hemoglobin 13.8 GM/DL (14.0-18.0); Immature Granulocytes Absolute 0.06 #; Lymphocytes # 2.9 10*3/uL (1.4-4.0); Lymphocytes % 46.7 % (21.2-54.2); Mean Corpuscular HGB Conc 30.7 GM/DL (32-36); Mean Corpuscular Hemoglobin 29 PG (27-34); Mean Corpuscular Volume 95.1 FL (87-102); Mean Platelet Volume 10.6 FL (9.6-12.0); Monocytes # 0.4 10*3/uL (0.11-0.8); Monocytes % 6.3 % (1.7-12.7); Neutrophils # 2.8 10*3/uL (1.4-7.4); Neutrophils % 45.5 % (38.7-73.9); Platelet Count 204 T/CUMM (130-400); Red Blood Count 4.72 MC/CUMM (3.8-5.5); Red Cell Distribution Width 14.3 % (9.3-17.3); White Blood Count 6.2 T/CUMM (4-12)
[2017-08-16] MEDS: PHENYLEPHRINE DRIP 40 MG/250 ML PREMIX IV SCH (05:25)
[2017-08-16 05:34] LABS: ABG Base Excess -16.6 MMOL/L (-2.5-2.5); ABG HCO3 12.1 MMOL/L (20-26); ABG Oxygen Saturation 93.9 % (95-100); ABG TCO2 17.2 MMOL/L (23-27); Pt O2 Delivery Device Ventilator
[2017-08-16 05:38] LABS: Ammonia 76 UMOL/L (11-32)
[2017-08-16 05:41] LABS: ABG PCO2 78.3 MM HG (35-48); ABG PH 6.961 (7.35-7.45)
[2017-08-16 05:41] LABS: Apearance,Urine CLEAR (Clear); Bacteria,Urine Occasional /HPF (Few); Bilirubin,Urine Negative (Negative); Blood, Urine Negative (Negative); Glucose,Urine (UA) Negative (Negative); Ketones,Urine Negative (Negative); Mucus,Urine Occasional /LPF (Occasional); Nitrite,Urine Negative (Negative); Protein,Urine Negative; RBC,Urine 7 /HPF (0-4); Urine Color Yellow (Yellow); Urine Urobilinogen < 2.0 EU/DL (0.2-1.0); WBC,Urine <1 /HPF (0-6)
[2017-08-16 05:43] LABS: Alanine Aminotransferase 63 U/L (16-61); Alkaline Phosphatase 87 U/L (45-117); Aspartate Amino Transferase 139 U/L (0-37); Blood Urea Nitrogen 14 MG/DL (7-18); Calcium 10.5 MG/DL (8.5-10.1); Glucose 183 MG/DL (74-106); INR 1.2; Magnesium 2.6 MG/DL (1.8-2.4); Osmolality,Calculated 295.6 MOS/KG (273-304); PT Patient Result 12.7 SECS; Potassium 4.6 MMOL/L (3.5-5.1); Sodium 146 MMOL/L (136-145); Total Protein 6.7 G/DL (6.4-8.3); Troponin I Only 0.126 NG/ML (0.00-0.045)
[2017-08-16 05:44] LABS: Barbiturates Screen,Urine Negative (Negative); Benzodiazepines Screen,Urine Negative (Negative); Cannabinoid Screen,Urine Negative (Negative); Opiate Screen,Urine Negative (Negative); Phencyclidine Screen,Urine Negative (Negative)
[2017-08-16 05:56] LABS: Lactic Acid 15.5 MMOL/L (0.4-2.0)
[2017-08-16 06:00] LABS: Prolactin 25.1 NG/ML
[2017-08-16] MEDS ORDERED: NITROGLYCERIN 2% OINT 1 INCH/GM PACK TOP STA (06:15)
[2017-08-16] MEDS ORDERED: FUROSEMIDE 40 MG/4 ML VIAL IV STA (06:15)
[2017-08-16] MEDS ORDERED: NITROGLYCERIN 2% OINT 1 INCH/GM PACK TOP ONE (06:26)
[2017-08-16] MEDS ORDERED: FUROSEMIDE 100 MG/10 ML VIAL ONE (06:27)
[2017-08-16] MEDS ORDERED: VECURONIUM 10 MG VIAL IV ONE (06:30)
[2017-08-16] MEDS ORDERED: PROPOFOL 1,000 MG/100 ML BOTTLE IV ONE (06:30)
[2017-08-16] MEDS ORDERED: PROPOFOL 1,000 MG/100 ML BOTTLE IV SCH (06:35)
[2017-08-16] MEDS ORDERED: SODIUM BICARBONATE 50 MEQ/50 ML VIAL IV STA (08:01)
[2017-08-16] MEDS ORDERED: ONDANSETRON 4 MG/2 ML VIAL IV PRN (08:01)
[2017-08-16] MEDS ORDERED: POTASSIUM CHLORIDE RIDER 10 MEQ in PREMIX 1 EACH IV PRN (08:01)
[2017-08-16] MEDS ORDERED: MAGNESIUM SULF RIDER 4 GM in PREMIX 1 EACH IV PRN (08:01)
[2017-08-16] MEDS ORDERED: MAGNESIUM SULF RIDER 2 GM in PREMIX 1 EACH IV PRN (08:01)
[2017-08-16] MEDS ORDERED: ENOXAPARIN 100 MG/ML SYRINGE SUBCUT STA (08:01)
[2017-08-16] MEDS ORDERED: SODIUM CHLORIDE 0.9% 1,000 ML IV SCH (08:01)
[2017-08-16] MEDS: FUROSEMIDE 40 MG/4 ML VIAL IV SCH ×2 (08:08→16:33)
[2017-08-16] MEDS ORDERED: ENOXAPARIN 80 MG/0.8 ML SYRINGE SUBCUT ONE (08:14)
[2017-08-16] MEDS ORDERED: SODIUM BICARBONATE 50 MEQ/50 ML SYRINGE IV ONE ×3 (08:15→12:35)
[2017-08-16 08:53] LABS: ABG Base Excess 2.7 MMOL/L (-2.5-2.5); ABG HCO3 26.8 MMOL/L (20-26); ABG Oxygen Saturation 99.1 % (95-100); ABG PH 7.235 (7.35-7.45)
[2017-08-16 09:00] LABS: ABG PCO2 80.4 MM HG (35-48)
[2017-08-16] MEDS ORDERED: ASPIRIN EC 81 MG TABLET PO SCH (09:30)
[2017-08-16 09:36] LABS: CKMB % 1.9 %
[2017-08-16 09:39] LABS: Troponin I Only 0.31 NG/ML (0.00-0.045)
[2017-08-16] MEDS ORDERED: ASPIRIN 325 MG TABLET ONE (09:59)
[2017-08-16] MEDS ORDERED: TICAGRELOR 90 MG TABLET ONE (09:59)
[2017-08-16] MEDS ORDERED: PANTOPRAZOLE 40 MG VIAL IV ONE (09:59)
[2017-08-16] MEDS: PANTOPRAZOLE 40 MG VIAL IV SCH (10:00)
[2017-08-16] MEDS: TICAGRELOR 90 MG TABLET PO SCH ×2 (10:02→20:21)
[2017-08-16] MEDS ORDERED: CARVEDILOL 3.125 MG TABLET ONE (10:05)
[2017-08-16] MEDS ORDERED: ASPIRIN CHEW 81 MG TABLET PO ONE (10:05)
[2017-08-16] MEDS: CARVEDILOL 6.25 MG TABLET PO SCH ×2 (10:06→20:21)
[2017-08-16] MEDS ORDERED: CLINDAMYCIN INJ 50 ML IV ONE (10:23)
[2017-08-16] MEDS: CLINDAMYCIN INJ 600 MG in PREMIX 1 EACH IV SCH ×2 (10:24→17:59)
[2017-08-16] MEDS ORDERED: ASPIRIN CHEW 81 MG TABLET PO STA (10:51)
[2017-08-16 11:07] LABS: Basophils % 0.2 % (0.0-0.8); Hematocrit 47.9 VOL% (42.0-52.0); Hemoglobin 15.4 GM/DL (14.0-18.0); Immature Granulocytes % 0.9 %; Lymphocytes % 9.2 % (21.2-54.2); Mean Corpuscular HGB Conc 32.2 GM/DL (32-36); Mean Corpuscular Hemoglobin 29 PG (27-34); Mean Corpuscular Volume 90.9 FL (87-102); Mean Platelet Volume 10.6 FL (9.6-12.0); Monocytes # 0.4 10*3/uL (0.11-0.8); Monocytes % 3.4 % (1.7-12.7); Neutrophils # 9.5 10*3/uL (1.4-7.4); Neutrophils % 86.3 % (38.7-73.9); Platelet Count 210 T/CUMM (130-400); Red Blood Count 5.27 MC/CUMM (3.8-5.5); Red Cell Distribution Width 14.5 % (9.3-17.3)
[2017-08-16 11:14] LABS: INR 1.3; Partial Thromboplastin Time 27.4 SECS (0-40)
[2017-08-16 11:55] LABS: ABG Base Excess -5.2 MMOL/L (-2.5-2.5); ABG HCO3 20.2 MMOL/L (20-26); ABG Oxygen Saturation 99.5 % (95-100); ABG PCO2 46.4 MM HG (35-48); ABG PH 7.282 (7.35-7.45)
[2017-08-16 12:07] LABS: Troponin I Only 0.503 NG/ML (0.00-0.045)
[2017-08-16 12:32] LABS: Calcium 9.2 MG/DL (8.5-10.1); Magnesium 2.2 MG/DL (1.8-2.4); Phosphorous 8.9 MG/DL (2.5-4.9)
[2017-08-16 12:34] LABS: Potassium 6.6 MMOL/L (3.5-5.1)
[2017-08-16] MEDS ORDERED: MIDAZOLAM 2 MG/2 ML VIAL IV PRN (12:53)
[2017-08-16] MEDS ORDERED: MIDAZOLAM 10 MG/2 ML VIAL ONE (12:54)
[2017-08-16] MEDS ORDERED: NOREPINEPHRINE 8 MG in SODIUM CHLORIDE 0.9% 242 ML IV SCH (13:00)
[2017-08-16] MEDS ORDERED: SODIUM BICARB INJ 100 MEQ in DEXTROSE 5% NACL 0.45% 1,000 ML IV SCH (13:00)
[2017-08-16] MEDS ORDERED: CISATRACURIUM 10 MG/5 ML VIAL IV ONE (13:00)
[2017-08-16] MEDS: SODIUM CHLORIDE 0.9% 1,000 ML IV SCH ×2 (13:00→21:38)
[2017-08-16] MEDS ORDERED: MIDAZOLAM 2 MG/2 ML VIAL IV ONE (13:35)
[2017-08-16] MEDS ORDERED: MORPHINE 2 MG/1 ML SYRINGE IV ONE (13:37)
[2017-08-16] MEDS ORDERED: HEPARIN/NACL 0.9% 2 UNITS/ML 500 ML IV ONE (13:39)
[2017-08-16] MEDS: CISATRACURIUM 200 MG in SODIUM CHLORIDE 0.9% 100 ML IV SCH (13:40)
[2017-08-16] MEDS ORDERED: GLUCAGON 1 MG VIAL IM PRN (13:46)
[2017-08-16 14:01] LABS: ABG Base Excess 0.9 MMOL/L (-2.5-2.5); ABG HCO3 25.3 MMOL/L (20-26); ABG PCO2 38.4 MM HG (35-48); ABG PH 7.424 (7.35-7.45); ABG TCO2 21.3 MMOL/L (23-27)
[2017-08-16] MEDS: NITROGLYCERIN 2% OINT 1 INCH/GM PACK TOP SCH ×3 (14:15→23:52)
[2017-08-16] MEDS: MIDAZOLAM 100 MG in SODIUM CHLORIDE 0.9% 80 ML IV SCH (14:19)
[2017-08-16 14:20] LABS: CKMB % 2.2 %
[2017-08-16] MEDS: fentaNYL INJ 1,250 MCG in SODIUM CHLORIDE 0.9% 225 ML IV SCH (14:20)
[2017-08-16 14:23] LABS: Troponin I Only 0.604 NG/ML (0.00-0.045)
[2017-08-16] MEDS: MINERAL OIL/PETROLATUM OPH OINT 3.5 GM TUBE BOTH EYES SCH ×2 (15:27→21:15)
[2017-08-16 16:08] LABS: Basophils % 0.1 % (0.0-0.8); Hematocrit 45.7 VOL% (42.0-52.0); Immature Granulocytes % 0.7 %; Lymphocytes # 1.3 10*3/uL (1.4-4.0); Lymphocytes % 9.2 % (21.2-54.2); Mean Corpuscular HGB Conc 32.8 GM/DL (32-36); Mean Corpuscular Hemoglobin 29 PG (27-34); Mean Corpuscular Volume 88.4 FL (87-102); Mean Platelet Volume 10.8 FL (9.6-12.0); Monocytes # 1.2 10*3/uL (0.11-0.8); Monocytes % 8.7 % (1.7-12.7); Neutrophils # 11.3 10*3/uL (1.4-7.4); Neutrophils % 81.3 % (38.7-73.9); Platelet Count 199 T/CUMM (130-400); Red Blood Count 5.17 MC/CUMM (3.8-5.5); Red Cell Distribution Width 14.6 % (9.3-17.3); White Blood Count 13.9 T/CUMM (4-12)
[2017-08-16 16:17] LABS: INR 1.3; Partial Thromboplastin Time 29.4 SECS (0-40)
[2017-08-16] MEDS: INSULIN REGULAR 100 UNIT/ML IV SCH ×3 (16:30→23:48)
[2017-08-16 17:07] LABS: Calcium 8.4 MG/DL (8.5-10.1); Magnesium 1.9 MG/DL (1.8-2.4); Osmolality,Calculated 297.3 MOS/KG (273-304); Potassium 4.5 MMOL/L (3.5-5.1)
[2017-08-16] MEDS: MORPHINE 2 MG/1 ML SYRINGE IV PRN (20:33)
[2017-08-16 21:02] LABS: Basophils % 0.2 % (0.0-0.8); Hematocrit 43.5 VOL% (42.0-52.0); Hemoglobin 14.4 GM/DL (14.0-18.0); Immature Granulocytes Absolute 0.16 #; Lymphocytes # 1.7 10*3/uL (1.4-4.0); Mean Corpuscular HGB Conc 33.1 GM/DL (32-36); Mean Corpuscular Hemoglobin 29 PG (27-34); Mean Corpuscular Volume 87.9 FL (87-102); Mean Platelet Volume 10.1 FL (9.6-12.0); Monocytes # 0.9 10*3/uL (0.11-0.8); Monocytes % 5.6 % (1.7-12.7); Neutrophils # 13.7 10*3/uL (1.4-7.4); Neutrophils % 83.2 % (38.7-73.9); Platelet Count 166 T/CUMM (130-400); Red Blood Count 4.95 MC/CUMM (3.8-5.5); Red Cell Distribution Width 14.7 % (9.3-17.3); White Blood Count 16.5 T/CUMM (4-12)
[2017-08-16 21:09] LABS: INR 1.3; PT Patient Result 13.6 SECS; Partial Thromboplastin Time 30.4 SECS (0-40)
[2017-08-16] MEDS: fentaNYL 100 MCG/2 ML VIAL IV PRN (21:13)
[2017-08-16 21:22] LABS: Calcium 8.4 MG/DL (8.5-10.1); Magnesium 1.7 MG/DL (1.8-2.4); Potassium 2.9 MMOL/L (3.5-5.1)
[2017-08-16 21:27] LABS: CKMB % 2.7 %; Troponin I Only 0.537 NG/ML (0.00-0.045)
[2017-08-16] MEDS ORDERED: POTASSIUM CHLORIDE RIDER 100 ML IV ONE (21:30)
[2017-08-16] MEDS: POTASSIUM CHLORIDE RIDER 20 MEQ in PREMIX 1 EACH IV PRN ×2 (21:37→23:37)
[2017-08-17] MEDS: fentaNYL INJ 1,250 MCG in SODIUM CHLORIDE 0.9% 225 ML IV SCH ×6 (01:19→22:53)
[2017-08-17] MEDS: CLINDAMYCIN INJ 600 MG in PREMIX 1 EACH IV SCH ×2 (01:21→09:14)
[2017-08-17 03:26] LABS: ABG Base Excess 0.3 MMOL/L (-2.5-2.5); ABG HCO3 22.7 MMOL/L (20-26); ABG Oxygen Saturation 98.3 % (95-100); ABG PCO2 30.5 MM HG (35-48); ABG PO2 114.3 MM HG (80-95); ABG TCO2 23.7 MMOL/L (23-27)
[2017-08-17 03:27] LABS: Basophils % 0.2 % (0.0-0.8); Hematocrit 38.8 VOL% (42.0-52.0); Immature Granulocytes Absolute 0.16 #; Lymphocytes # 1.6 10*3/uL (1.4-4.0); Lymphocytes % 9.7 % (21.2-54.2); Mean Corpuscular HGB Conc 33.5 GM/DL (32-36); Mean Corpuscular Hemoglobin 29 PG (27-34); Mean Corpuscular Volume 87.2 FL (87-102); Monocytes # 0.8 10*3/uL (0.11-0.8); Monocytes % 4.8 % (1.7-12.7); Neutrophils # 13.8 10*3/uL (1.4-7.4); Neutrophils % 84.3 % (38.7-73.9); Platelet Count 162 T/CUMM (130-400); Red Blood Count 4.45 MC/CUMM (3.8-5.5); Red Cell Distribution Width 14.7 % (9.3-17.3); White Blood Count 16.4 T/CUMM (4-12)
[2017-08-17 03:34] LABS: INR 1.2; PT Patient Result 12.7 SECS; Partial Thromboplastin Time 32.5 SECS (0-40)
[2017-08-17 03:50] LABS: Albumin 2.7 G/DL (3.4-5.0); Bilirubin,Total 0.8 MG/DL (0.2-1.0); Calcium 7.8 MG/DL (8.5-10.1); Magnesium 2.3 MG/DL (1.8-2.4); Osmolality,Calculated 304.7 MOS/KG (273-304); Potassium 3.6 MMOL/L (3.5-5.1); Risk Ratio 3.09; Total Protein 5.8 G/DL (6.4-8.3); VLDL CHOLESTEROL 39.6 MG/DL
[2017-08-17] MEDS ORDERED: SODIUM CHLORIDE 0.45% 500 ML IV ONE (04:01)
[2017-08-17] MEDS: INSULIN REGULAR 100 UNIT/ML IV SCH ×5 (04:08→21:12)
[2017-08-17 04:18] LABS: CKMB % 3.1 %
[2017-08-17 04:22] LABS: Troponin I Only 0.518 NG/ML (0.00-0.045)
[2017-08-17] MEDS ORDERED: POTASSIUM CHLORIDE INJ 40 MEQ, SODIUM CHLORIDE 23.4% CONC INJ 38.5 MEQ in STERILE WATER... IV SCH (05:00)
[2017-08-17] MEDS ORDERED: CALCIUM GLUCONATE 1,000 MG in SODIUM CHLORIDE 0.9% 100 ML IV ONE (05:00)
[2017-08-17] MEDS: PHENYLEPHRINE DRIP 40 MG/250 ML PREMIX IV SCH (05:13)
[2017-08-17 05:29] LABS: Band Neutrophils 8 % (0-10); Burr Cells Slight; Giant Platelets Few; Hypochromasia 1+; Lymphocytes 5 % (20-55); Ovalocytes Slight; Platelet Estimate Normal; Segmented Neutrophils 85 % (50-85); Total Cells Counted 100
[2017-08-17 05:33] LABS: Platelet Estimate Normal
[2017-08-17] MEDS: NITROGLYCERIN 2% OINT 1 INCH/GM PACK TOP SCH ×2 (06:06→12:08)
[2017-08-17] MEDS: FUROSEMIDE 40 MG/4 ML VIAL IV SCH ×3 (07:54→15:50)
[2017-08-17] MEDS ORDERED: ASPIRIN CHEW 81 MG TABLET PO SCH (09:00)
[2017-08-17 09:04] LABS: Basophils % 0.2 % (0.0-0.8); Hematocrit 39.2 VOL% (42.0-52.0); Hemoglobin 12.9 GM/DL (14.0-18.0); Immature Granulocytes % 0.9 %; Immature Granulocytes Absolute 0.14 #; Lymphocytes # 1.2 10*3/uL (1.4-4.0); Lymphocytes % 7.9 % (21.2-54.2); Mean Corpuscular HGB Conc 32.9 GM/DL (32-36); Mean Corpuscular Hemoglobin 29 PG (27-34); Mean Corpuscular Volume 86.9 FL (87-102); Mean Platelet Volume 10.8 FL (9.6-12.0); Monocytes # 0.6 10*3/uL (0.11-0.8); Neutrophils # 13.6 10*3/uL (1.4-7.4); Platelet Count 158 T/CUMM (130-400); Red Blood Count 4.51 MC/CUMM (3.8-5.5); Red Cell Distribution Width 14.6 % (9.3-17.3); White Blood Count 15.6 T/CUMM (4-12)
[2017-08-17] MEDS: TICAGRELOR 90 MG TABLET PO SCH ×2 (09:14→21:13)
[2017-08-17] MEDS: CARVEDILOL 6.25 MG TABLET PO SCH (09:14)
[2017-08-17] MEDS: MINERAL OIL/PETROLATUM OPH OINT 3.5 GM TUBE BOTH EYES SCH ×3 (09:14→21:13)
[2017-08-17 09:15] LABS: INR 1.1; Partial Thromboplastin Time 32.9 SECS (0-40)
[2017-08-17 09:36] LABS: Burr Cells Slight; Giant Platelets Few; Hypochromasia 1+; Ovalocytes Slight; Platelet Estimate Normal
[2017-08-17] MEDS: PANTOPRAZOLE 40 MG VIAL IV SCH (09:57)
[2017-08-17 11:29] LABS: Calcium 7.9 MG/DL (8.5-10.1); Magnesium 2.1 MG/DL (1.8-2.4); Potassium 5.5 MMOL/L (3.5-5.1)
[2017-08-17] MEDS ORDERED: SODIUM CHLORIDE 0.45% 1,000 ML IV SCH (12:00)
[2017-08-17] MEDS ORDERED: FOLIC ACID 5 MG/1 ML VIAL IV SCH (14:00)
[2017-08-17 14:39] LABS: Basophils % 0.2 % (0.0-0.8); Hematocrit 36.2 VOL% (42.0-52.0); Hemoglobin 12.2 GM/DL (14.0-18.0); Immature Granulocytes % 0.6 %; Lymphocytes # 1.1 10*3/uL (1.4-4.0); Lymphocytes % 6.4 % (21.2-54.2); Mean Corpuscular HGB Conc 33.7 GM/DL (32-36); Mean Corpuscular Hemoglobin 29 PG (27-34); Mean Platelet Volume 10.6 FL (9.6-12.0); Monocytes # 0.8 10*3/uL (0.11-0.8); Monocytes % 4.8 % (1.7-12.7); Neutrophils # 14.5 10*3/uL (1.4-7.4); Platelet Count 144 T/CUMM (130-400); Red Blood Count 4.21 MC/CUMM (3.8-5.5); Red Cell Distribution Width 14.7 % (9.3-17.3); White Blood Count 16.5 T/CUMM (4-12)
[2017-08-17] MEDS: THIAMINE 200 MG/2 ML VIAL IV SCH (14:46)
[2017-08-17 14:47] LABS: INR 1.1; PT Patient Result 11.6 SECS; Partial Thromboplastin Time 32.3 SECS (0-40)
[2017-08-17 15:20] LABS: Calcium 7.7 MG/DL (8.5-10.1); Magnesium 2.2 MG/DL (1.8-2.4); Osmolality,Calculated 293.6 MOS/KG (273-304); Potassium 3.6 MMOL/L (3.5-5.1)
[2017-08-17] MEDS: FOLIC ACID INJ 1 MG in SYRINGE 1 EACH IV SCH (15:33)
[2017-08-17] MEDS: PIPERACILLIN/TAZOBACTAM 3,375 MG in SODIUM CHLORIDE 0.9% 100 ML IV SCH ×2 (15:34→23:22)
[2017-08-17] MEDS ORDERED: ACETAMINOPHEN PO PRN (19:45)
[2017-08-17 20:58] LABS: Basophils % 0.1 % (0.0-0.8); Hematocrit 34.9 VOL% (42.0-52.0); Hemoglobin 11.8 GM/DL (14.0-18.0); Immature Granulocytes % 0.9 %; Immature Granulocytes Absolute 0.14 #; Lymphocytes # 1.2 10*3/uL (1.4-4.0); Lymphocytes % 7.9 % (21.2-54.2); Mean Corpuscular HGB Conc 33.8 GM/DL (32-36); Mean Corpuscular Hemoglobin 29 PG (27-34); Mean Platelet Volume 10.7 FL (9.6-12.0); Monocytes # 0.8 10*3/uL (0.11-0.8); Monocytes % 4.9 % (1.7-12.7); Neutrophils # 13.3 10*3/uL (1.4-7.4); Neutrophils % 86.2 % (38.7-73.9); Platelet Count 142 T/CUMM (130-400); Red Blood Count 4.06 MC/CUMM (3.8-5.5); Red Cell Distribution Width 14.9 % (9.3-17.3); White Blood Count 15.4 T/CUMM (4-12)
[2017-08-17 21:00] LABS: ABG Base Excess 2.3 MMOL/L (-2.5-2.5); ABG HCO3 24.4 MMOL/L (20-26); ABG Oxygen Saturation 98.9 % (95-100); ABG PCO2 30.1 MM HG (35-48); ABG PH 7.526 (7.35-7.45); ABG PO2 165.3 MM HG (80-95); ABG TCO2 25.3 MMOL/L (23-27)
[2017-08-17 21:18] LABS: INR 1.1; PT Patient Result 11.5 SECS; Partial Thromboplastin Time 31.3 SECS (0-40)
[2017-08-17 21:27] LABS: Alanine Aminotransferase 152 U/L (16-61); Albumin 2.6 G/DL (3.4-5.0); Alkaline Phosphatase 81 U/L (45-117); Aspartate Amino Transferase 273 U/L (0-37); Bilirubin,Total < 0.39 MG/DL (0.2-1.0); Blood Urea Nitrogen 22 MG/DL (7-18); CKMB % 2.7 %; Calcium 7.5 MG/DL (8.5-10.1); Glucose 120 MG/DL (74-106); Osmolality,Calculated 295.4 MOS/KG (273-304); Phosphorous 4.3 MG/DL (2.5-4.9); Potassium 3.5 MMOL/L (3.5-5.1); Sodium 147 MMOL/L (136-145); Total Protein 5.6 G/DL (6.4-8.3)
[2017-08-17] MEDS: CISATRACURIUM 200 MG in SODIUM CHLORIDE 0.9% 100 ML IV SCH (21:57)
[2017-08-17] MEDS ORDERED: MAGNESIUM SULF RIDER 4 GM in PREMIX 1 EACH IV PRN (23:32)
[2017-08-17] MEDS ORDERED: MAGNESIUM SULF RIDER 2 GM in PREMIX 1 EACH IV PRN (23:32)
[2017-08-17] MEDS: POTASSIUM CHLORIDE RIDER 20 MEQ in PREMIX 1 EACH IV PRN (23:38)
[2017-08-18] MEDS: fentaNYL 100 MCG/2 ML VIAL IV PRN (00:48)
[2017-08-18] MEDS: INSULIN REGULAR 100 UNIT/ML IV SCH ×6 (01:14→23:57)
[2017-08-18] MEDS: POTASSIUM CHLORIDE RIDER 10 MEQ in PREMIX 1 EACH IV PRN (01:35)
[2017-08-18] MEDS: MIDAZOLAM 100 MG in SODIUM CHLORIDE 0.9% 80 ML IV SCH ×2 (01:45→15:31)
[2017-08-18] MEDS ORDERED: CALCIUM GLUCONATE 2,000 MG in SODIUM CHLORIDE 0.9% 100 ML IV ONE (02:00)
[2017-08-18 04:01] LABS: ABG HCO3 24.3 MMOL/L (20-26); ABG Oxygen Saturation 99.2 % (95-100); ABG PCO2 30.4 MM HG (35-48); ABG PO2 224.7 MM HG (80-95); ABG TCO2 25.2 MMOL/L (23-27)
[2017-08-18 04:12] LABS: Basophils % 0.1 % (0.0-0.8); Hematocrit 34.4 VOL% (42.0-52.0); Hemoglobin 11.6 GM/DL (14.0-18.0); Immature Granulocytes % 0.8 %; Immature Granulocytes Absolute 0.13 #; Lymphocytes # 1.3 10*3/uL (1.4-4.0); Lymphocytes % 8.5 % (21.2-54.2); Mean Corpuscular HGB Conc 33.7 GM/DL (32-36); Mean Corpuscular Hemoglobin 29 PG (27-34); Mean Corpuscular Volume 86.6 FL (87-102); Mean Platelet Volume 10.7 FL (9.6-12.0); Monocytes # 0.8 10*3/uL (0.11-0.8); Monocytes % 4.8 % (1.7-12.7); Neutrophils # 13.3 10*3/uL (1.4-7.4); Neutrophils % 85.8 % (38.7-73.9); Platelet Count 139 T/CUMM (130-400); Red Blood Count 3.97 MC/CUMM (3.8-5.5); Red Cell Distribution Width 14.7 % (9.3-17.3); White Blood Count 15.5 T/CUMM (4-12)
[2017-08-18 04:29] LABS: Partial Thromboplastin Time 29.9 SECS (0-40)
[2017-08-18] MEDS: PHENYLEPHRINE DRIP 40 MG/250 ML PREMIX IV SCH (04:40)
[2017-08-18 04:53] LABS: Albumin 2.7 G/DL (3.4-5.0); Bilirubin,Total 0.4 MG/DL (0.2-1.0); Calcium 7.7 MG/DL (8.5-10.1); Magnesium 2.2 MG/DL (1.8-2.4); Osmolality,Calculated 295.4 MOS/KG (273-304); Potassium 3.8 MMOL/L (3.5-5.1); Total Protein 5.6 G/DL (6.4-8.3)
[2017-08-18] MEDS: POTASSIUM CHLORIDE RIDER 20 MEQ in PREMIX 1 EACH IV PRN ×2 (05:33→11:33)
[2017-08-18] MEDS: PIPERACILLIN/TAZOBACTAM 3,375 MG in SODIUM CHLORIDE 0.9% 100 ML IV SCH ×3 (06:18→22:19)
[2017-08-18] MEDS: FUROSEMIDE 40 MG/4 ML VIAL IV SCH (08:42)
[2017-08-18] MEDS ORDERED: CARVEDILOL 6.25 MG TABLET PO SCH (09:30)
[2017-08-18 09:37] LABS: Basophils % 0.1 % (0.0-0.8); Hematocrit 34.3 VOL% (42.0-52.0); Hemoglobin 11.5 GM/DL (14.0-18.0); Immature Granulocytes % 0.8 %; Immature Granulocytes Absolute 0.11 #; Lymphocytes # 1.5 10*3/uL (1.4-4.0); Lymphocytes % 10.5 % (21.2-54.2); Mean Corpuscular HGB Conc 33.5 GM/DL (32-36); Mean Corpuscular Hemoglobin 29 PG (27-34); Mean Corpuscular Volume 86.8 FL (87-102); Mean Platelet Volume 11.3 FL (9.6-12.0); Monocytes # 0.7 10*3/uL (0.11-0.8); Monocytes % 4.8 % (1.7-12.7); Neutrophils # 11.8 10*3/uL (1.4-7.4); Neutrophils % 83.8 % (38.7-73.9); Platelet Count 140 T/CUMM (130-400); Red Blood Count 3.95 MC/CUMM (3.8-5.5)
[2017-08-18] MEDS: THIAMINE 200 MG/2 ML VIAL IV SCH (09:40)
[2017-08-18] MEDS: TICAGRELOR 90 MG TABLET PO SCH ×2 (09:41→20:00)
[2017-08-18] MEDS: FOLIC ACID INJ 1 MG in SYRINGE 1 EACH IV SCH (09:41)
[2017-08-18] MEDS: MINERAL OIL/PETROLATUM OPH OINT 3.5 GM TUBE BOTH EYES SCH ×3 (09:42→20:02)
[2017-08-18] MEDS: ASPIRIN EC 81 MG TABLET PO SCH (09:42)
[2017-08-18] MEDS: SODIUM CHLORIDE 0.45% 1,000 ML IV SCH ×2 (09:44→22:24)
[2017-08-18] MEDS: PANTOPRAZOLE 40 MG VIAL IV SCH (09:52)
[2017-08-18 09:55] LABS: PT Patient Result 10.7 SECS; Partial Thromboplastin Time 29.2 SECS (0-40)
[2017-08-18 10:13] LABS: Band Neutrophils 5 % (0-10); Lymphocytes 14 % (20-55); Segmented Neutrophils 78 % (50-85); Total Cells Counted 100
[2017-08-18 10:14] LABS: Hypochromasia 1+
[2017-08-18 10:15] LABS: Microcytosis Slight; Platelet Estimate Adequate
[2017-08-18 10:45] LABS: Calcium 7.9 MG/DL (8.5-10.1); Magnesium 2.2 MG/DL (1.8-2.4); Osmolality,Calculated 295.4 MOS/KG (273-304); Potassium 3.7 MMOL/L (3.5-5.1)
[2017-08-18] MEDS: hydrALAZINE 20 MG/1 ML VIAL IV PRN (18:42)
[2017-08-18] MEDS: CARVEDILOL 12.5 MG TABLET PO SCH (20:00)
[2017-08-18] MEDS ORDERED: ATORVASTATIN 80 MG TABLET PO SCH (21:00)
[2017-08-18] MEDS: DEXTROSE 50% 25 GM/50 ML VIAL IV PRN (23:44)
[2017-08-19 03:31] LABS: ABG Base Excess -0.6 MMOL/L (-2.5-2.5); ABG Oxygen Saturation 99.9 % (95-100); ABG PCO2 30.2 MM HG (35-48); ABG PH 7.476 (7.35-7.45); ABG TCO2 20.2 MMOL/L (23-27)
[2017-08-19 03:35] LABS: Basophils % 0.2 % (0.0-0.8); Eosinophils % 0.2 % (0.00-10.9); Hematocrit 32.6 VOL% (42.0-52.0); Hemoglobin 10.7 GM/DL (14.0-18.0); Immature Granulocytes % 0.6 %; Immature Granulocytes Absolute 0.08 #; Lymphocytes # 1.1 10*3/uL (1.4-4.0); Lymphocytes % 8.6 % (21.2-54.2); Mean Corpuscular HGB Conc 32.8 GM/DL (32-36); Mean Corpuscular Hemoglobin 29 PG (27-34); Mean Corpuscular Volume 87.4 FL (87-102); Monocytes # 0.7 10*3/uL (0.11-0.8); Monocytes % 5.8 % (1.7-12.7); Neutrophils # 10.4 10*3/uL (1.4-7.4); Neutrophils % 84.6 % (38.7-73.9); Platelet Count 127 T/CUMM (130-400); Red Blood Count 3.73 MC/CUMM (3.8-5.5); Red Cell Distribution Width 14.8 % (9.3-17.3); White Blood Count 12.3 T/CUMM (4-12)
[2017-08-19 04:05] LABS: Albumin 2.6 G/DL (3.4-5.0); Bilirubin,Total 0.5 MG/DL (0.2-1.0); Calcium 7.8 MG/DL (8.5-10.1); Magnesium 2.3 MG/DL (1.8-2.4); Osmolality,Calculated 287.7 MOS/KG (273-304); Phosphorous 2.6 MG/DL (2.5-4.9); Potassium 3.5 MMOL/L (3.5-5.1); Total Protein 5.5 G/DL (6.4-8.3)
[2017-08-19] MEDS: POTASSIUM CHLORIDE RIDER 20 MEQ in PREMIX 1 EACH IV PRN (04:20)
[2017-08-19] MEDS: DEXTROSE 50% 25 GM/50 ML VIAL IV PRN (05:31)
[2017-08-19] MEDS: POTASSIUM CHLORIDE RIDER 10 MEQ in PREMIX 1 EACH IV PRN (06:23)
[2017-08-19] MEDS: INSULIN REGULAR 100 UNIT/ML IV SCH ×3 (07:07→17:42)
[2017-08-19] MEDS: PIPERACILLIN/TAZOBACTAM 3,375 MG in SODIUM CHLORIDE 0.9% 100 ML IV SCH ×3 (07:23→23:29)
[2017-08-19] MEDS: ASPIRIN EC 81 MG TABLET PO SCH (08:41)
[2017-08-19] MEDS: THIAMINE 200 MG/2 ML VIAL IV SCH (08:41)
[2017-08-19] MEDS: TICAGRELOR 90 MG TABLET PO SCH ×2 (08:41→20:54)
[2017-08-19] MEDS: CARVEDILOL 12.5 MG TABLET PO SCH ×2 (08:41→20:54)
[2017-08-19] MEDS: MINERAL OIL/PETROLATUM OPH OINT 3.5 GM TUBE BOTH EYES SCH ×3 (08:42→21:04)
[2017-08-19] MEDS: PANTOPRAZOLE 40 MG VIAL IV SCH (09:32)
[2017-08-19] MEDS: FOLIC ACID INJ 1 MG in SYRINGE 1 EACH IV SCH (09:32)
[2017-08-19] MEDS: SODIUM CHLORIDE 0.45% 1,000 ML IV SCH ×3 (10:47→22:41)
[2017-08-19] MEDS: hydrALAZINE 20 MG/1 ML VIAL IV PRN ×2 (13:24→20:00)
[2017-08-19] MEDS: MORPHINE 2 MG/1 ML SYRINGE IV PRN ×2 (15:11→21:30)
[2017-08-19] MEDS ORDERED: SODIUM CHLORIDE 0.45% 500 ML IV ONE (16:03)
[2017-08-19] MEDS ORDERED: CARVEDILOL 12.5 MG TABLET PO ONE (16:08)
[2017-08-20] MEDS: INSULIN REGULAR 100 UNIT/ML IV SCH ×2 (00:11→05:58)
[2017-08-20] MEDS: hydrALAZINE 20 MG/1 ML VIAL IV PRN ×4 (00:21→13:08)
[2017-08-20] MEDS: MORPHINE 2 MG/1 ML SYRINGE IV PRN ×3 (03:01→10:55)
[2017-08-20 03:52] LABS: Basophils % 0.2 % (0.0-0.8); Eosinophils # 0.1 10*3/uL (0.0-0.87); Eosinophils % 0.6 % (0.00-10.9); Hematocrit 35.2 VOL% (42.0-52.0); Hemoglobin 11.5 GM/DL (14.0-18.0); Immature Granulocytes % 0.4 %; Immature Granulocytes Absolute 0.05 #; Lymphocytes # 0.8 10*3/uL (1.4-4.0); Mean Corpuscular HGB Conc 32.7 GM/DL (32-36); Mean Corpuscular Hemoglobin 29 PG (27-34); Mean Corpuscular Volume 87.3 FL (87-102); Mean Platelet Volume 10.7 FL (9.6-12.0); Monocytes # 0.7 10*3/uL (0.11-0.8); Monocytes % 6.2 % (1.7-12.7); Neutrophils # 9.9 10*3/uL (1.4-7.4); Neutrophils % 85.6 % (38.7-73.9); Platelet Count 136 T/CUMM (130-400); Red Blood Count 4.03 MC/CUMM (3.8-5.5); Red Cell Distribution Width 14.6 % (9.3-17.3); White Blood Count 11.5 T/CUMM (4-12)
[2017-08-20 03:54] LABS: ABG Base Excess -2.4 MMOL/L (-2.5-2.5); ABG HCO3 22.5 MMOL/L (20-26); ABG Oxygen Saturation 99.8 % (95-100); ABG PCO2 29.2 MM HG (35-48); ABG PH 7.455 (7.35-7.45); ABG TCO2 18.2 MMOL/L (23-27)
[2017-08-20 04:21] LABS: Albumin 2.4 G/DL (3.4-5.0); Bilirubin,Total 0.4 MG/DL (0.2-1.0); Magnesium 2.3 MG/DL (1.8-2.4); Phosphorous 2.2 MG/DL (2.5-4.9); Potassium 3.6 MMOL/L (3.5-5.1); Total Protein 5.8 G/DL (6.4-8.3)
[2017-08-20] MEDS: POTASSIUM CHLORIDE RIDER 20 MEQ in PREMIX 1 EACH IV PRN (06:01)
[2017-08-20] MEDS: PIPERACILLIN/TAZOBACTAM 3,375 MG in SODIUM CHLORIDE 0.9% 100 ML IV SCH (06:04)
[2017-08-20] MEDS ORDERED: ASPIRIN CHEW 81 MG TABLET PO ONE (08:00)
[2017-08-20] MEDS: CARVEDILOL 12.5 MG TABLET PO SCH ×2 (08:12→21:43)
[2017-08-20] MEDS: THIAMINE 200 MG/2 ML VIAL IV SCH (08:12)
[2017-08-20] MEDS: TICAGRELOR 90 MG TABLET PO SCH ×2 (08:14→21:43)
[2017-08-20] MEDS: MINERAL OIL/PETROLATUM OPH OINT 3.5 GM TUBE BOTH EYES SCH ×3 (08:24→21:43)
[2017-08-20] MEDS: FOLIC ACID INJ 1 MG in SYRINGE 1 EACH IV SCH (08:34)
[2017-08-20] MEDS ORDERED: LISINOPRIL 5 MG TABLET PO SCH ×2 (09:00→10:15)
[2017-08-20] MEDS: SODIUM CHLORIDE 0.45% 1,000 ML IV SCH ×3 (09:28→19:27)
[2017-08-20] MEDS: ASPIRIN EC 81 MG TABLET PO SCH (09:49)
[2017-08-20] MEDS: ASPIRIN CHEW 81 MG TABLET PO SCH (09:49)
[2017-08-20] MEDS ORDERED: FUROSEMIDE 40 MG/4 ML VIAL IV ONE (10:14)
[2017-08-20] MEDS ORDERED: LISINOPRIL 20 MG TABLET ONE (10:32)
[2017-08-20] MEDS: cefTRIAXone 1,000 MG in SYRINGE 1 EACH IV SCH (10:42)
[2017-08-20] MEDS: PANTOPRAZOLE 40 MG VIAL IV SCH (10:43)
[2017-08-20] MEDS: AZITHROMYCIN INJ 500 MG in SODIUM CHLORIDE 0.9% 250 ML IV SCH (12:49)
[2017-08-20] MEDS ORDERED: amLODIPine 10 MG TABLET PO ONE (16:30)
[2017-08-20] MEDS: INSULIN REGULAR 100 UNIT/ML SUBCUT SCH (18:02)
[2017-08-21] MEDS: INSULIN REGULAR 100 UNIT/ML SUBCUT SCH ×3 (01:38→12:27)
[2017-08-21 09:55] LABS: Albumin 2.6 G/DL (3.4-5.0); Bilirubin,Total 0.4 MG/DL (0.2-1.0); Calcium 8.3 MG/DL (8.5-10.1); Magnesium 2.4 MG/DL (1.8-2.4); Osmolality,Calculated 282.4 MOS/KG (273-304); Phosphorous 2.6 MG/DL (2.5-4.9); Potassium 3.3 MMOL/L (3.5-5.1); Total Protein 6.2 G/DL (6.4-8.3)
[2017-08-21 10:02] LABS: Basophils % 0.1 % (0.0-0.8); Eosinophils % 0.4 % (0.00-10.9); Hematocrit 35.4 VOL% (42.0-52.0); Hemoglobin 11.6 GM/DL (14.0-18.0); Immature Granulocytes % 0.7 %; Immature Granulocytes Absolute 0.05 #; Lymphocytes # 0.9 10*3/uL (1.4-4.0); Lymphocytes % 13.1 % (21.2-54.2); Mean Corpuscular HGB Conc 32.8 GM/DL (32-36); Mean Corpuscular Hemoglobin 29 PG (27-34); Mean Corpuscular Volume 87.4 FL (87-102); Mean Platelet Volume 10.8 FL (9.6-12.0); Monocytes # 0.8 10*3/uL (0.11-0.8); Monocytes % 11.3 % (1.7-12.7); Neutrophils # 5.2 10*3/uL (1.4-7.4); Neutrophils % 74.4 % (38.7-73.9); Platelet Count 180 T/CUMM (130-400); Red Blood Count 4.05 MC/CUMM (3.8-5.5); Red Cell Distribution Width 14.6 % (9.3-17.3)
[2017-08-21] MEDS: cefTRIAXone 1,000 MG in SYRINGE 1 EACH IV SCH (10:40)
[2017-08-21] MEDS: AZITHROMYCIN INJ 500 MG in SODIUM CHLORIDE 0.9% 250 ML IV SCH (10:44)
[2017-08-21 10:58] LABS: ABG Base Excess -0.4 MMOL/L (-2.5-2.5); ABG HCO3 21.7 MMOL/L (20-26); ABG Oxygen Saturation 97.2 % (95-100); ABG PCO2 28.3 MM HG (35-48); ABG PH 7.503 (7.35-7.45); ABG PO2 95.3 MM HG (80-95); ABG TCO2 22.6 MMOL/L (23-27)
[2017-08-21] MEDS: SODIUM CHLORIDE 0.45% 1,000 ML IV SCH (11:54)
[2017-08-21] MEDS: ASPIRIN CHEW 81 MG TABLET PO SCH (11:54)
[2017-08-21] MEDS: CARVEDILOL 12.5 MG TABLET PO SCH (11:55)
[2017-08-21] MEDS: PANTOPRAZOLE 40 MG VIAL IV SCH (11:55)
[2017-08-21] MEDS: MINERAL OIL/PETROLATUM OPH OINT 3.5 GM TUBE BOTH EYES SCH (11:55)
[2017-08-21] MEDS: THIAMINE 200 MG/2 ML VIAL IV SCH (11:55)
[2017-08-21] MEDS: FOLIC ACID INJ 1 MG in SYRINGE 1 EACH IV SCH (11:55)
[2017-08-21] MEDS: TICAGRELOR 90 MG TABLET PO SCH (11:55)
[2017-08-21] MEDS ORDERED: MORPHINE 2 MG/1 ML SYRINGE IV ONE (14:23)
[2017-08-21] MEDS ORDERED: fentaNYL 50 MCG/HR PATCH TRANSDERM SCH (14:30)
[2017-08-21] MEDS ORDERED: GLYCOPYRROLATE 0.4 MG/2 ML VIAL IV ONE (14:47)
[2017-08-21] MEDS: MORPHINE 2 MG/1 ML SYRINGE IV PRN ×3 (15:02→20:30)
[2017-08-21 16:34] VITALS: BP 157/94
[2017-08-21] MEDS ORDERED: GLYCOPYRROLATE 0.4 MG/2 ML VIAL IV PRN (17:00)
[2017-08-22] MEDS: MORPHINE 2 MG/1 ML SYRINGE IV PRN (02:42)
== END 2017-08-22 06:39 | disposition expired | DRG 917 ==
LOC: EDUNIT# → EDBD → N.ED 04:54 → N.EDINP 06:05 → SUATTDRO 06:05 → N.CC 12:09 → N.4E 08-21 18:34
PROVIDERS: ADMIT Internal Medicine Cardiovascular Disease; ATTEND Internal Medicine